=== PATIENT | female | born 1995 | race Caucasian/White ===

== ENCOUNTER 2017-07-05 16:05 | Emergency (ER) | payer MEDICAID, SELFPAY ==
[2017-07-05 16:07] VITALS: BP 98/38; PULSE 111; RESP 18; TEMP 36.6; O2SAT 96; BMI 39.5
--- NOTE | 2017-07-05 16:33 | CT_ITS ---
STUDY: CT ABDOMEN AND PELVIS WITH CONTRAST REASON FOR EXAM: Female, 21 years old. Right lower quadrant abdominal pain RADIATION DOSAGE (If Supplied By Facility): CTDIvol = ( 16.43 ) mGy, DLP = ( 1193.99 ) mGycm TECHNIQUE: Transaxial images were obtained from the dome of the diaphragm to the symphysis pubis with oral contrast. 100ML ml of Isovue 300 contrast was administered. Sagittal and coronal images were reconstructed. Individualized dose optimization techniques were used for this CT. COMPARISON: None. FINDINGS: The visualized lung bases are unremarkable. The visualized portions of the heart are within normal limits. Normal liver. Normal gallbladder and extrahepatic biliary system. Normal spleen. Normal pancreas. Normal bilateral adrenal glands. Normal right kidney. Normal left kidney. Normal visualized stomach. Normal small intestine. Normal colon. The appendix is visualized and appears normal. Normal abdominal aorta. Normal inferior vena cava. Normal retroperitoneum. Normal urinary bladder. Possibly partially septate uterus. Bilateral ovarian cysts. Normal abdominal wall. Normal osseous structures. CT/Abdomen/Pelvis WITH Contrast IMPRESSION: Unremarkable appendix. No acute findings. Remainder as above. Electronically Signed: Benny Sumner DO at 20:10 EST Tel , Service support ,
--- NOTE | 2017-07-05 16:46 | ED.VISSUMM ---
- ER Visit Summary Date of Service: 07/05/17 Chief Complaint: Abdominal pain History of Present Illness: The patient is a 21 F presenting with right lower quadrant abdominal pain. She states it started on Sunday. She has pain persistently in the right lower quadrant. She has nausea with no vomiting. She has decreased appetite. She has had subjective fevers at home. She was seen by urgent care and sent into the ED to rule out appendicitis. Denies possibility of . Physical Examination: Vitals are stable. Patient is afebrile. Alert no acute distress. HEENT exam is unremarkable. Neck is supple. Lungs are clear and equal bilaterally. Heart is regular rate and rhythm. Abdomen is soft right lower quadrant tenderness, no guarding or rebound Extremities are unremarkable. Skin is warm and dry. No focal neurologic deficit. Remainder of exam is unremarkable. Emergency Department Course and Treatment: Patient was given Zofran, phenergan. CBC, chemistries unremarkable. Liver lipase are normal. HCG negative. CT abdomen pelvis shows unremarkable appendix, bilateral ovarian cyst, possibly partially septate uterus. Patient is resting comfortably in the emergency department. She is advised to follow-up with [facility] MANAGER. Advised return ED for worsening complaints. Disposition: Discharge home Impression: Abdominal pain This note was generated with [employer] dictation software. It may contain incorrect words, spelling, and punctuation that were not noted in review of the chart prior to signing ED Disposition - Plan for ED Patient: Chief Complaint: Abd Pain Referrals: Gopi Beasley DO [Primary Care Provider] -
[2017-07-05 16:48] LABS: Absolute Lymphocyte Count 1.96 X10^3/ul (0.83-4.51); Absolute Neutrophil Count 6.5 X10^3/uL (2.0-7.7); Basophil# 0.07 X10^3/uL; Basophil% 0.8 % (0-1); Eosinophil# 0.31 X10^3/uL; Eosinophils% 3.4 % (0-5); Hematocrit 41.9 % (37-47); Hemoglobin 13.6 g/dl (12.0-15.0); Lymphocyte # 1.96 X10^3/ul (4.0); Lymphocyte % 21.2 % (19-41); Mean Corp Hgb Conc 32.5 g/gl (32-36); Mean Corpuscular Hgb 26.8 pg (27.0-32.0); Mean Corpuscular Volume 82.5 fL (81-99); Mean Platelet Vol. 11.2 fl (6.2-12.0); Monocyte# 0.45 X10^3/uL; Monocyte% 4.9 % (0-10); Neutrophil # 6.45 X10^3/uL (2.7-7.7); Neutrophil % 69.6 % (47-70); Platelet Count 262 K/mm3 (150-450); RBC Distribution Width CV 13.9 % (11.6-14.6); RBC Distribution Width SD 41.8 fl (35.1-43.9); Red Blood Count 5.08 M/mm3 (4.2-5.4); White Blood Count 9.3 K/mm3 (4.4-11.0)
[2017-07-05] MEDS: Ondansetron 4 MG/2 ML Vial IV (16:48)
[2017-07-05 16:49] LABS: POSITIVE COUNT NO; POSITIVE DIFFERENTIAL NO; POSITIVE MORPHOLOGY NO
[2017-07-05 17:01] LABS: AST(SGOT) 14 U/L (15-37); Alanine Aminotransfer ALT/SGPT 30 U/L (13-56); Alkaline Phosphatase 64 U/L (45-117); Anion Gap 11 (5-15); BUN 7 mg/dL (7-18); BUN/Creat Ratio 9.2 RATIO (10-20); Calcium,Total 9.3 mg/dL (8.5-10.1); Chloride 105 mmol/L (98-107); Creatinine, Serum 0.76 mg/dL (0.55-1.02); EST Glomerular Filtration Rate 102 mL/min (>60); Est Glom Filt Rate - Afr Amer 123 mL/min (>60); Estimated Creatinine Clearance 101.11 ml/min; Globulin 4.2 g/dL (2.2-4.2); Glucose 93 mg/dL (74-106); Lipase 105 U/L (73-393); Potassium 3.7 mmol/L (3.5-5.1); Protein, Total 8.2 g/dL (6.4-8.2); Sodium Level 140 mmol/L (136-145)
[2017-07-05 17:33] LABS: Pregnancy, Serum, hCG Quali. NEGATIVE Negative (0-9 Nonpreg)
[2017-07-05 19:43] VITALS: BP 125/75; PULSE 73; RESP 16; O2SAT 98
--- NOTE | 2017-07-05 20:31 | ED.DEP ---
ED Disposition - Plan for ED Patient: Chief Complaint: Abd Pain Instructions: ED Abdominal Pain Unkn Cause Prescriptions: Naproxen [Naprosyn] 500 mg PO BID PRN #20 tablet Referrals: Gopi Beasley DO [Primary Care Provider] -
[2017-07-05 20:53] VITALS: BP 137/65; PULSE 78; RESP 15; O2SAT 97
--- NOTE | 2017-07-05 20:54 | ED.RN ---
this rn reviewed pt discharge instructions and home going prescriptions with pt and mother. both verbalize understanding of instructions. pt iv d/c and covered with 2x2 gauze dressing, minimal bleeding noted. pt dresses self and is ambulatory home with mother, no assistance from staff needed.
== END 2017-07-05 20:56 | disposition home or self-care (01) ==
LOC: ED 18:46
PROVIDERS: Emergency Provider Emergency Medicine; Family Provider Student in an Organized Health Care Education/Training Program; PCP Student in an Organized Health Care Education/Training Program
DX: R10.31 Right lower quadrant pain (principal); N83.202 Unspecified ovarian cyst, left side; N83.201 Unspecified ovarian cyst, right side; R11.0 Nausea; J45.909 Unspecified asthma, uncomplicated
CPT/HCPCS: 74177; 80053; 83690; 84703; 85025; 96361; 96374; 96375; 99283; J7040; Q9967; A4216; J2405

== ENCOUNTER → 2017-07-16 14:54 | Outpatient (CLI) | payer MEDICAID, SELFPAY ==
--- NOTE | 2017-07-16 14:55 | US_ITS ---
STUDY: ULTRASOUND OF THE FEMALE PELVIS - COMPLETE REASON FOR EXAM: Female, 21 years old. Pelvic and perineal pain. LMP: 07/05/2017. TECHNIQUE: Transabdominal TECHNICAL QUALITY: Limited. The examination is somewhat limited without endovaginal study. COMPARISON: None. FINDINGS: The uterus is anteverted and is in a midline position. The uterus measures 7.6 x 5.1 x 3.6 cm. Normal uterine cervix. The endometrium measures 7 mm in thickness, and is heterogeneous (striated). There is no demonstrated endometrial mass. There is no demonstrated myometrial mass. I.U.D. - The patient does not have an I.U.D. The right ovary is visualized. The right ovary measures 4.2 x 3.5 x 2.5 cm. There is a 2.8 cm complex nodule in the right ovary which could represent small hemorrhagic cyst. Solid lesion is difficult to exclude. There is no visualized right adnexal mass or complex lesion. There is normal arterial and normal venous vascularity. The left ovary is visualized. The left ovary measures 4 x 2.7 x 2.1 cm. There is no left ovarian cyst or ovarian mass. There is no visualized left adnexal mass or complex lesion. There is normal arterial and normal venous vascularity. There is no fluid in the cul-de-sac. The pre void volume of the bladder was 352 ml. Polycystic ovary disease: No. US/Pelvic (Non ) IMPRESSION: Small complex lesion in the right ovary which could represent hemorrhagic cyst. Solid lesion cannot be excluded. Follow-up examination in 2-3 months is recommended. Electronically Signed: Kings Joaquin MD at 0:48 EST Tel , Service support ,
== END ==
PROVIDERS: Family Provider Student in an Organized Health Care Education/Training Program; PCP Student in an Organized Health Care Education/Training Program; Visit Provider Nurse Practitioner Women's Health
DX: R10.2 Pelvic and perineal pain (principal)
CPT/HCPCS: 76856; 93976

== ENCOUNTER → 2017-08-28 16:04 | Outpatient (CLI) | payer MEDICAID, SELFPAY ==
--- NOTE | 2017-08-28 10:30 | SEP_PTH ---
PATIENT: ROXY OTERO LOC: [facility] U#:[id number] AGE/SX: 29/F ROOM: RE08/28/[address]: Dr. Panchito Clement MD : 1995 BED: DIS: SPEC #: [id number] RECD: 08/29/17 11:00 STATUS: JULIUS GREG #: [id number] CRYSTAL: 08/28/17 10:[address]: Panchito Clement DEPT: SURGICAL PATHOLOGY RECD BY: Isael Simmons ENTERED: 08/29/17 11:01 SP TYPE: SEPTUM OTHR DR: Dr. Gopi Beasley, [facility] Tissues: Nasal septum, NOS Procedures: Decalcification bone/plaque Surgery Specimen Level III HEADER OPERATION: Septoplasty and partial resection of inferior turbinates PRE-OP DIAGNOSIS: Hypertrophy of nasal turbinates, deviated nasal septum TISSUE SUBMITTED: Septal cartilage MICROSCOPIC DIAGNOSIS Nasoseptal cartilage, septoplasty: Fragments of hyaline cartilage and bone with focal reactive change (clinically deviated septum). AM:caitlyn 09/03/17 MICROSCOPIC DESCRIPTION Slides are reviewed. GROSS DESCRIPTION Received is one container labeled with the patient's name and not further designated. The specimen consists of multiple fragments of cartilage and bone that in aggregate measure 2 x 1.5 x 0.3 cm. The entire specimen is submitted in one cassette after decalcification. / SJ:caitlyn 08/29/17 TC:5 CPT: 27158, 92269
== END ==
PROVIDERS: Family Provider Student in an Organized Health Care Education/Training Program; PCP Student in an Organized Health Care Education/Training Program; Visit Provider Otolaryngology Otolaryngology/Facial Plastic Surgery
DX: J34.3 Hypertrophy of nasal turbinates (principal); J34.2 Deviated nasal septum
CPT/HCPCS: 88304; 88311

== ENCOUNTER 2021-11-09 20:29 | Emergency (ER) | payer OTHER, SELFPAY ==
[2021-11-09 20:30] VITALS: BP 135/97; PULSE 76; RESP 16; TEMP 36.4; O2SAT 98; BMI 31.6
[2021-11-09 21:06] VITALS: BP 138/98; PULSE 57; RESP 14; O2SAT 98
[2021-11-09 21:16] LABS: Absolute Lymphocyte Count 1.56 X10^3/uL (0.83-4.51); Absolute Neutrophil Count 4.4 X10^3/uL (2.0-7.7); Basophil# 0.06 X10^3/uL; Basophil% 0.9 % (0-1); Eosinophil# 0.38 X10^3/uL; Eosinophils% 5.5 % (0-5); Hematocrit 36.6 % (37-47); Hemoglobin 12.2 g/dL (12.0-15.0); Lymphocyte # 1.56 X10^3/ul (0.83-4.51); Lymphocyte % 22.8 % (19-41); Mean Corp Hgb Conc 33.3 g/dL (32-36); Mean Corpuscular Hgb 28.8 pg (27.0-32.0); Mean Corpuscular Volume 86.5 fL (81-99); Mean Platelet Vol. 11.3 fl (6.2-12.0); Monocyte# 0.49 X10^3/uL; Monocyte% 7.2 % (0-10); NRBC Flagged by Analyzer 0 % (0-5); Neutrophil # 4.35 X10^3/uL (2.7-7.7); Neutrophil % 63.5 % (47-70); Platelet Count 197 K/mm3 (150-450); RBC Distribution Width CV 12.5 % (11.6-14.6); RBC Distribution Width SD 39.3 fl (35.1-43.9); Red Blood Count 4.23 M/mm3 (4.2-5.4); White Blood Count 6.9 K/mm3 (4.4-11.0)
[2021-11-09 21:27] LABS: Internal QC Validated? YES +Cl - CLEAR BKGD; Pregnancy, Serum, hCG Quali. NEGATIVE Negative
[2021-11-09 21:30] LABS: Anion Gap 6 (5-15); BUN 7 mg/dL (7-18); BUN/Creat Ratio 11.4 RATIO (10-20); Calcium,Total 8.8 mg/dL (8.5-10.1); Chloride 112 mmol/L (98-107); Creatinine, Serum 0.62 mg/dL (0.55-1.02); EST Glomerular Filtration Rate 124 mL/min (>60); Est Glom Filt Rate - Afr Amer 151 mL/min (>60); Estimated Creatinine Clearance 118.74 ml/min; Glucose 90 mg/dL (74-106); Potassium 3.5 mmol/L (3.5-5.1); Sodium Level 142 mmol/L (136-145)
--- NOTE | 2021-11-09 21:36 | CT_ITS ---
INDICATION: abdominal pain EXAMINATION: CT ABDOMEN AND PELVIS WITH CONTRAST - CT Abdomen And Pelvis W/ Contrast Injection TECHNIQUE: Helically acquired images were obtained of the abdomen and pelvis following IV contrast. A radiation dose optimization technique was used for this scan. IV Contrast dosage and agent: 100 mL of ISOVUE-300 Oral contrast: None. COMPARISON: CT abdomen and pelvis 07/05/2017. FINDINGS: LOWER CHEST: Lung bases are clear. No cardiomegaly or pericardial effusion. LIVER: Homogeneous. No focal mass. GALLBLADDER AND BILIARY TREE: No calcified gallstones. No gallbladder distension or wall edema. No intra- or extrahepatic biliary ductal dilation. PANCREAS: No focal cystic or solid mass. SPLEEN: Normal size without focal cystic or solid mass. ADRENAL GLANDS: No nodules. KIDNEYS, URETERS and BLADDER: Normal renal size and position. No mass. No hydronephrosis. Bladder is unremarkable. PERITONEUM: No ascites or free air. No other fluid collection. BOWEL: No evidence of acute appendicitis. No abnormally distended bowel loops or air fluid levels. No wall thickening or mass. No focal inflammatory changes. LYMPH NODES: No enlarged mesenteric or retroperitoneal lymph nodes. VESSELS: Aorta is non-dilated. REPRODUCTIVE ORGANS: Within normal limits ABDOMINAL WALL: No discrete abdominal or pelvic wall hernia. 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 Small os acetabulum on the left and benign bone island left femoral head. CT/Abdomen/Pelvis W IV Cont ONLY IMPRESSION: Negative CT of the abdomen and pelvis with contrast. Electronically Signed: Wisam Dudley DO at 22:32 EDT ,
--- NOTE | 2021-11-09 21:37 | ED.VIS.GI ---
HPI HPI - GI History of Present Illness Chief Complaint: Abd Pain Informant: patient Narrative Narrative: D6-year-old female presenting to the emergency department with abdominal pain. She states that she relates that she was having epigastric right upper quadrant abdominal pain on Sunday associated with nausea and small amount of diarrhea. She denies any fevers. She states that it feels like it is worsening. She states it hurts worse when she walks and when she pushes on her abdomen. She has had no prior abdominal surgeries. She has not vomited. No rashes. No blood in the stool. PFSH PFSH Medical History Anxiety Depression Laceration of right index finger Home Medications ondansetron 4 mg disintegrating tablet 4 mg PO Q6H PRN PRN Nausea #15 tabs 11/09/21 [Rx Last Taken Unknown] oxycodone-acetaminophen 5 mg-325 mg tablet 1 tab PO Q6H PRN PRN Pain 3 days #12 TABLETS 11/09/21 [Rx Last Taken Unknown] Allergy/AdvReac Type Severity Reaction Status Date / Time amoxicillin [Amoxicillin] Allergy Rash Verified 11/09/21 20:31 hydrocodone bitartrate AdvReac Nausea/Vom/ Verified 11/09/21 20:31 [From Vicodin] Diarrhea Family History Mother Lupus Diabetes Grandfather Diabetes Heart disease Surgical History H/O wisdom tooth extraction History of placement of ear tubes History of tonsillectomy Social History Smoking Status: Never smoker alcohol intake: current details: social substance use type: does not use caffeine: Yes frequency: 1-2 times per week seatbelt use: always do you feel safe at home: Yes additional social history: Single- Unemployed ROS ROS ED Constitutional Constitutional ED: Denies chills or weight loss Eyes Eyes: Denies change in vision or diplopia ENT ENT ED: Denies ear pain, rhinorrhea or sore throat Cardiovascular Cardiovascular: Denies chest pain, orthopnea, palpitations or racing heartbeat Respiratory/Chest Respiratory/Chest: Denies cough, dyspnea or orthopnea Gastrointestinal Gastrointestinal: Reports abdominal pain, diarrhea and nausea; Denies constipation or vomiting Genitourinary Genitourinary ED: Denies dysuria, hematuria or urinary frequency Musculoskeletal Musculoskeletal: Denies arthralgias or myalgias Integumentary Denies abscess or rash Neurologic Neurologic: Denies headache(s) or weakness Psychiatric Psychiatric: Denies anxiety, depression, suicidal ideation or suicidal thoughts Endocrine Endocrinology: Denies polydipsia, polyphagia or polyuria Allergic/Immunologic Allergic/Immunologic ED: Denies mouth swelling, tongue swelling or urticaria EXAM Physical Exam Const Vital Signs: 11/09/21 20:30 11/09/21 21:06 Temperature 97.6 F L Temperature Source Temporal Pulse Rate 76 57 L Respiratory Rate 16 14 Blood Pressure 135/97 H 138/98 H Blood Pressure Mean 109 111 Pulse Ox 98 98 Oxygen Delivery Method Room Air Room Air Positive well nourished and well developed General Appearance ED: well developed HEENT Reports normocephalic, head/scalp atraumatic and moist mucous membranes Eyes PERRL and EOMs intact bilaterally Neck no lymphadenopathy, supple and no JVD Resp normal respiratory effort and clear to auscultation bilaterally Cardio regular rate, regular rhythm and no murmurs GI GI Narrative: Tender to palpation without guarding or rebound of the right upper quadrant and epigastrium. Auscultation: normoactive bowel sounds Palpation: soft Back/Spine no CVA tenderness and normal ROM Extremity normal to inspection General Extremety ED: Negative for edema General Extremity: Negative for edema Neuro oriented x3 and CN's II-XII intact bilaterally Sensorium / Orientation: alert Motor Exam: strength 5/5 throughout Psych mental status grossly normal Mood & Affect: Negative for depressed or tearful Skin no rashes or lesions noted and no wounds MDM MDM MDM Narrative Medical decision making narrative: White count 6.9. CMP is within normal limits. test is negative. Lipase is 92. CT of the abdomen pelvis with IV contrast is negative for acute. Patient continues to report pain in the epigastrium with palpation. At this point however I do not see an obvious emergent cause for the patient's symptoms. Can write for some pain and nausea medication. Return in 24 to 48 hours if new or persistent symptoms. Lab Data Attestation: I reviewed the patient's lab results. Labs: Laboratory Results - last 24 hr 06/22/22 06/22/22 06/22/22 21:11 21:11 21:11 WBC 6.9 RBC 4.23 Hgb 12.2 Hct 36.6 L MCV 86.5 MCH 28.8 MCHC 33.3 RDW Std Deviation 39.3 RDW Coeff of Kiya 12.5 Plt Count 197 MPV 11.3 Immature Gran % (Auto) 0.100 Neut % (Auto) 63.5 Lymph % (Auto) 22.8 [place] % (Auto) 7.2 Eos % (Auto) 5.5 H Baso % (Auto) 0.9 Absolute Neuts (auto) 4.4 Absolute Lymphs (auto) 1.56 Nucleated RBC % 0 Sodium 142 Potassium 3.5 Chloride 112 H Carbon Dioxide 24.0 Anion Gap 6 BUN 7 Creatinine 0.62 Estim Creat Clear Calc 118.74 Est GFR (MDRD) Af Amer 151 Est GFR (MDRD) Non-Af 124 BUN/Creatinine Ratio 11.4 Glucose 90 Calcium 8.8 Total Bilirubin Direct Bilirubin AST ALT Alkaline Phosphatase Total Protein Albumin Globulin Lipase Serum , Qual NEGATIVE 11/09/21 11/09/21 21:11 21:11 WBC RBC Hgb Hct MCV MCH MCHC RDW Std Deviation RDW Coeff of Kiya Plt Count MPV Immature Gran % (Auto) Neut % (Auto) Lymph % (Auto) [place] % (Auto) Eos % (Auto) Baso % (Auto) Absolute Neuts (auto) Absolute Lymphs (auto) Nucleated RBC % Sodium Potassium Chloride Carbon Dioxide Anion Gap BUN Creatinine Estim Creat Clear Calc Est GFR (MDRD) Af Amer Est GFR (MDRD) Non-Af BUN/Creatinine Ratio Glucose Calcium Total Bilirubin 0.40 Direct Bilirubin 0.19 AST 10 L ALT 19 Alkaline Phosphatase 43 L Total Protein 6.7 Albumin 3.6 Globulin 3.1 Lipase 92 Serum , Qual Radiography Diagnostic Testing: Clinical Impression(s) from Imaging Studies Abdomen/Pelvis CT 11/09/21 21:36 IMPRESSION: Negative CT of the abdomen and pelvis with contrast. Electronically Signed: Wisam Dudley DO at 22:32 EDT , Discharge Plan Triage Chief Complaint: Abd Pain ED Provider: Manny Martinez Dx/Rx/DC Orders Clinical Impression: Abdominal pain Instructions: ED Abdominal Pain Unkn Cause Fem Prescriptions: New oxycodone-acetaminophen [oxycodone-acetaminophen] 5-325 mg tablet 1 tab PO Q6H PRN PRN (Reason: Pain) 3 Days Qty: 12 0RF ondansetron [ondansetron] 4 mg tablet,disintegrating 4 mg PO Q6H PRN PRN (Reason: Nausea) Qty: 15 0RF Primary Care Provider: Care Physician,No Primary Referrals: Care Physician,No Primary [Primary Care Provider] - Activity Restrictions/Additional Instructions: If continued symptoms or worsening symptoms in 24-48 hrs. please return for repeat examination Disposition Disposition: Home, Self Care
[2021-11-09] MEDS: Ondansetron 4 MG/2 ML Vial IV (21:43)
[2021-11-09 21:59] LABS: AST(SGOT) 10 U/L (15-37); Alanine Aminotransfer ALT/SGPT 19 U/L (13-56); Albumin, Serum 3.6 g/dL (3.2-5.0); Alkaline Phosphatase 43 U/L (45-117); Bilirubin, Direct 0.19 mg/dL (0.00-0.30); Globulin 3.1 g/dL (2.2-4.2); Protein, Total 6.7 g/dL (6.4-8.2)
[2021-11-09 22:12] LABS: Lipase 92 U/L (73-393)
[2021-11-09 22:50] LABS: Bacteria 0 SEEN /hpf (None Seen); Mucous, Urine 0 SEEN /hpf (<or=2+); Red Blood Cells-Urine 0 SEEN /hpf (0-5)
[2021-11-09 23:08] LABS: Color, Urine Yellow (Yellow); Glucose, Dipstick Normal (Normal); Ketone-Dipstick Negative (Negative); Leukocyte Esterase-Dipstick 25 /ul (Negative); Nitrite-Dipstick Positive (Negative); Occult Blood-Urine Negative /ul (Negative); Protein-Dipstick Negative (Negative); Urine Clarity Clear (Clear); Urine Urobilinogen 4 mg/dl (Normal); Urine pH 6.5 (5.0 - 8.0)
[2021-11-09 23:18] LABS: Urine Bilirubin Dipstick 1 mg/dL (Negative)
[2021-11-09 23:33] LABS: Squamous Epithelial Cells - UA 0-5 SEEN /hpf (5-10); White Blood Cells 0-5 SEEN /hpf (0-5)
== END 2021-11-09 23:20 | disposition home or self-care (01) ==
PROVIDERS: Emergency Provider Emergency Medicine; Visit Provider Emergency Medicine
DX: R10.11 Right upper quadrant pain (principal); R10.13 Epigastric pain; R19.7 Diarrhea, unspecified
CPT/HCPCS: 74177; 80048; 80076; 81001; 83690; 84703; 85025; 96374; 99283; Q9967; A4216; J2405

== ENCOUNTER 2025-02-01 17:03 | Emergency (ER) | payer SELFPAY ==
[2025-02-01 17:03] VITALS: BP 123/69; PULSE 73; RESP 18; TEMP 36.8; O2SAT 98; BMI 32.1
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
[2025-02-01 17:39] VITALS: BP 141/98; PULSE 79; RESP 18; TEMP 37; O2SAT 100
--- OUTSIDE RECORDS SUMMARY | 2025-02-01 18:21 | XMS RPT_ITS | CCD ---
Author Organization [facility] Care Team Providers Care Butt Maker Name Role Phone Unavailable Primary Care Provider Unavailabl e Allergies Allergy Classification Reported Allergen(s) Allergy Type Date of Onset Reaction(s) Facility (2 sources) Amoxicillin Drug Allergy 3 GI Upset [facility] (1 source) HYDROcodone Drug Allergy 2 Nausea/Vom/Diar [facility] Work Phone: (1 source) Acetaminophen / HYDROcodone Drug Allergy 4 Vomiting [facility] (1 source) Cinnamon Preparation Drug Allergy 3 Rash [facility] (1 source) Penicillins Drug Allergy 3 GI Upset [facility] Medications Current Medications Medication Drug Class(es) Dates Sig (Normalized) Sig (Original) acetaminophen 325 mg / oxyCODONE hydrochloride 5 mg oral tablet (1 source) Opioid Agonist Start: 11-09-2021 take 1 tablet by mouth every six hours as needed Oxycodone-Acetami nophen Active 1 TABLET PO EVERY 6 HOURS NEEDED 12 3 November 09, 2021 ondansetron 4 mg disintegrating oral tablet (1 source) Serotonin-3 Receptor Antagonist Start: 11-09-2021 take 4 mg by mouth every six hours as needed Ondansetron Active 4 MG PO EVERY 6 HOURS NEEDED 15 November 09, 2021 11:05pm Problems Active Problems Problem Classification Problem Date Documented Da te Episodic/Chronic Abdominal pain (1 source) Abdominal pain; Translations: [Unspecified abdominal pain] Episodic Asthma (1 source) Asthma; Translations: [Unspecified asthma, uncomplicated] Onset: 08-15-2013 08-15-2013 Chronic Nutritional deficiencies (1 source) Vitamin D deficiency; Translations: [Vitamin D deficiency, unspecified] Onset: 09-16-2013 09-16-2013 Chronic Open wounds of extremities (1 source) Laceration of right index finger; Translations: [Laceration without foreign body of right index finger without damage to nail, initial encounter] Episodic Other nutritional; endocrine; and metabolic disorders (1 source) Body mass index 30+ - obesity; Translations: [Obesity, unspecified] Onset: 09-09-2013 09-09-2013 Chronic Past or Other Problems Problem Classification Problem Date Documented Da te Episodic/Chronic Headache; including migraine (1 source) Headache; Translations: [Worsening headaches] Onset: 09-09-2013 09-09-2013 Episodic Malaise and fatigue (1 source) Fatigue; Translations: [Other fatigue] Onset: 09-09-2013 09-09-2013 Episodic Other non-traumatic joint disorders (1 source) Pain in left shoulder; Translations: [Pain in joint, shoulder region] Onset: 09-09-2013 09-09-2013 Episodic Results Test Name Value Interpretation Reference Range Facility [facility] EZ FAULKNER ([id number]) 1995 F Date Time Provider Department 11/15/23 SHY AGUILAR During your visit today, we recorded the following information about you: Kandis Marshall RN 11/15/2023 3:00 PM Signed LMP 10/11 Approximately 4w6d Patient calling with c/o light pink spotting on Sunday night and again just a few moments ago. Only when she wiped. Mild to no pain. Reassurance provided. Patient had intercourse on Sunday. Advised to call with further or increased bleeding or worsening pain. Patient has upcoming NOB. No need to call patient unless provider has further recommendations. DORI Martinez Courtney, APRN.CNM 11/15/2023 3:18 PM Signed Agree with plan of care. Shy Aguilar APRN.CNM Allergies As of Date: 11/15/2023 Noted Allergy Reaction AMOXICILLIN 04/29/2013 8 - GI Upset CINNAMON 04/29/2013 2 - Rash PENICILLINS 04/29/2013 8 - GI Upset Comments: AND vomiting VICODIN (HYDROCODONE-ACETAMIN OPHE*08/11/2013 11 - Vomiting Date Reviewed: 07/05/2017 Reviewed by: Annie Byrd ([employer] Consultant), TRIPLE VALVE TESTER.BOTANY TEACHER - Fully Assessed Reason for Visit: Early OB Spotting [Other] Problem List As Of Date 11/15/2023 Noted Resolved Asthma [J45.909] 08/15/2013 Worsening headaches [R51.9] 09/09/2013 Fatigue [R53.83] 09/09/2013 Left shoulder pain [M25.512] 09/09/2013 Obesity (BMI 30-39.9) [E66.9] 09/09/2013 Vitamin D deficiency [E55.9] 09/16/2013 Encounter Status:Closed by SHY AGUILAR on 11/15/23 Normal [facility] Lipaseon 11-10-2021 Lipase [Catalytic activity/Vol] 92 U/L Normal 73-393 [facility] Comment on above: Performed By: #### L 501.2450 #### [facility] [address] [place], [place], [id number] Urinalysis, Completeon 11-10 EPI,SQUAMOUS 0-5 SEEN Normal 5-10 [facility] Comment on above: Order Comment: CLEAN CATCH Performed By: #### L 400.0001 #### [facility] [address] [place], [address] WBC 0-5 SEEN Normal 0-5 [facility] Comment on above: Order Comment: CLEAN CATCH Performed By: #### L 400.0001 #### [facility] [address] [place], [address] BACTERIA 0 SEEN Normal None Seen [facility] Comment on above: Order Comment: CLEAN CATCH Performed By: #### L 400.0001 #### [facility] [address] [place], [address] Mucus Ql (Urine sed) 0 SEEN Normal [facility] Comment on above: Order Comment: CLEAN CATCH Performed By: #### L 400.0001 #### [facility] [address] [place], [address] RBC 0 SEEN Normal 0-5 [facility] Comment on above: Order Comment: CLEAN CATCH Performed By: #### L 400.0001 #### [facility] [address] [place], [address] Abdomen/Pelvis W IV Cont ONL Yon 11-09-2021 Abdomen/Pelvis W IV Cont ONLY [facility] [address] [facility] [place] [address] Abdomen/Pelvis W IV Cont ONLY MR#: [id number] Acct: [id number] Name: EZ FAULKNER Rep #: [id number] : 1995 F 26 From: Wisam Dudley DO PCP: Care Physician,No Primary Status: REG ER Study: Abdomen/Pelvis W IV Cont ONLY Date of Exam: Exam# [id number] Ordering Dr: Manny Martinez DO INDICATION: abdominal pain EXAMINATION: CT ABDOMEN AND PELVIS WITH CONTRAST - CT Abdomen And Pelvis W/ Contrast Injection TECHNIQUE: Helically acquired images were obtained of the abdomen and pelvis following IV contrast. A radiation dose optimization technique was used for this scan. IV Contrast dosage and agent: 100 mL of ISOVUE-300 Oral contrast: None. COMPARISON: CT abdomen and pelvis 07/05/2017. __ FINDINGS: LOWER CHEST: Lung bases are clear. No cardiomegaly or pericardial effusion. LIVER: Homogeneous. No focal mass. GALLBLADDER AND BILIARY TREE: No calcified gallstones. No gallbladder distension or wall edema. No intra- or extrahepatic biliary ductal dilation. PANCREAS: No focal cystic or solid mass. SPLEEN: Normal size without focal cystic or solid mass. ADRENAL GLANDS: No nodules. KIDNEYS, URETERS and BLADDER: Normal renal size and position. No mass. No hydronephrosis. Bladder is unremarkable. PERITONEUM: No ascites or free air. No other fluid collection. BOWEL: No evidence of acute appendicitis. No abnormally distended bowel loops or air fluid levels. No wall thickening or mass. No focal inflammatory changes. LYMPH NODES: No enlarged mesenteric or retroperitoneal lymph nodes. VESSELS: Aorta is non-dilated. REPRODUCTIVE ORGANS: Within normal limits ABDOMINAL WALL: No discrete abdominal or pelvic wall hernia. 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 Small os acetabulum on the left and benign bone island left femoral head. CT/Abdomen/Pelvis W IV Cont ONLY IMPRESSION: Negative CT of the abdomen and pelvis with contrast. Electronically Signed: Wisam Dudley DO at 22:32 EDT , CC: Dr. Manny Martinez DO; No Primary Care Physician Injection Molding Machine Offbearer: Signed Normal [facility] Absolute lymphocyte counton 11-09-2021 Lymphocytes Auto (Unsp spec) [#/Vol] 1.56 10*3/uL 0.83-4.51 [facility] Work Phone: Basic Metabolic Profile (BMP )on 11-09-2021 BUN/CRE 11.4 RATIO Normal 10-20 [facility] Comment on above: Performed By: #### L 700.6800, L100.0100, L500.2500 #### [facility] [address] [place], [address] CA,Total 8.8 mg/dL Normal 8.5-10.1 [facility] Comment on above: Performed By: #### L 700.6800, L100.0100, L500.2500 #### [facility] [address] [place], [address] Chloride [Moles/Vol] 112 mmol/L High 98-107 [facility] Comment on above: Performed By: #### L 700.6800, L100.0100, L500.2500 #### [facility] [address] [place], [address] CO2 [Moles/Vol] 24.0 mmol/L Normal 21.0-32.0 [facility] Comment on above: Performed By: #### L 700.6800, L100.0100, L500.2500 #### [facility] [address] [place], [address] Creatinine [Mass/Vol] 0.62 mg/dL Normal 0.55-1.02 [facility] Comment on above: Result Comment: The validity of the calculated GFR GFRAA in patients over 70 years has not been determined. Clinical correlation is essential. Performed By: #### L 700.6800, L100.0100, L500.2500 #### [facility] [address] [place], [address] ECRCL 118.74 ml/min Normal [facility] Comment on above: Performed By: #### L 700.6800, L100.0100, L500.2500 #### [facility] [address] [place], [address] EST GFR - AA 151 mL/min Normal >60 [facility] Comment on above: Result Comment: Afri can [place] GFR Calc Performed By: #### L 700.6800, L100.0100, L500.2500 #### [facility] [address] [place], [address] GAP 6 Normal 5-15 [facility] Comment on above: Performed By: #### L 700.6800, L100.0100, L500.2500 #### [facility] [address] [place], [address] GFR/1.73 sq M.predicted among non-blacks MDRD (S/P/Bld) [Vol rate/Area] 124 mL/min/{1.73_m2} Normal >60 [facility] Comment on above: Result Comment: Non- GFR Calc Performed By: #### L 700.6800, L100.0100, L500.2500 #### [facility] [address] [place], [address] Glucose [Mass/Vol] 90 mg/dL Normal 74-106 [facility] Comment on above: Performed By: #### L 700.6800, L100.0100, L500.2500 #### [facility] [address] [place], [address] Potassium [Moles/Vol] 3.5 mmol/L Normal 3.5-5.1 [facility] Comment on above: Performed By: #### L 700.6800, L100.0100, L500.2500 #### [facility] [address] [place], [address] Sodium [Moles/Vol] 142 mmol/L Normal 136-145 [facility] Comment on above: Performed By: #### L 700.6800, L100.0100, L500.2500 #### [facility] [address] [place], [address] Urea nitrogen [Mass/Vol] 7 mg/dL Normal 7-18 [facility] Comment on above: Performed By: #### L 700.6800, L100.0100, L500.2500 #### [facility] [address] [place], [address] Basophil percentageon 2021 Basophils/100 WBC (Bld) 0.9 % 0-1 [facility] Work Phone: Bilirubin [Mass/Vol] 0.40 mg/dL 0.20-1.00 [facility] Work Phone: Comment on above: For patients on eltr ombopag therapy, use of Dimension [place] TBIL is not recommended. Chloride [Moles/Vol] 112 mmol/L 98-107 [facility] Work Phone: Eosinophils/100 WBC (Bld) 5.5 % 0-5 [facility] Work Phone: Glucose [Mass/Vol] 90 mg/dL 74-106 [facility] Work Phone: Neutrophils (Bld) [#/Vol] 4.4 10*3/uL 2.0-7.7 [facility] Work Phone: Neutrophils/100 WBC (Bld) 63.5 % 47-70 [facility] Work Phone: Potassium [Moles/Vol] 3.5 mmol/L 3.5-5.1 [facility] Work Phone: Protein [Mass/Vol] 6.7 g/dL 6.4-8.2 [facility] Work Phone: Sodium [Moles/Vol] 142 mmol/L 136-145 [facility] Work Phone: WBC (Bld) [#/Vol] 6.9 10*3/uL 4.4-11.0 [facility] Work Phone: Beta hCG serum qualon 2021 Beta HCG ( test) Ql Negative [facility] Work Phone: Bilirubin Test strip Ql (U)o n 11-09-2021 Bilirubin Ql (U) 1 mg/dL Negative [facility] Work Phone: Comment on above: COLOR OF URINE MAY A FFECT DIPSTICK RESULTS. Blood erythrocytes count (nu mber/volume)on 11-09-2021 RBC (Bld) [#/Vol] 4.23 10*6/uL 4.2-5.4 [facility] Work Phone: Blood hemoglobin measurement (mass/volume)on 11-09-2021 Hemoglobin (Bld) [Mass/Vol] 12.2 g/dL 12.0-15.0 [facility] Work Phone: Blood lymphocytes/100 leukoc yteson 11-09-2021 Lymphocytes/100 WBC (Bld) 22.8 % 19-41 [facility] Work Phone: Blood monocytes/100 leukocyt eson 11-09-2021 Monocytes/100 WBC (Bld) 7.2 % 0-10 [facility] Work Phone: Blood platelet mean volumeon 11-09-2021 Platelet mean volume (Bld) [Entitic vol] 11.3 fL 6.2-12.0 [facility] Work Phone: CBC W/Diff, Automatedon 10-20 Absolute Lymph 1.56 X10 3/uL Normal 0.83-4.51 [facility] Comment on above: Performed By: #### L 700.6800, L100.0100, L500.2500 #### [facility] [address] [place], [address] Absolute Neut 4.4 X10 3/uL Normal 2.0-7.7 [facility] Comment on above: Performed By: #### L 700.6800, L100.0100, L500.2500 #### [facility] [address] [place], [address] Basophils/100 WBC (Bld) 0.9 % Normal 0-1 [facility] Comment on above: Performed By: #### L 700.6800, L100.0100, L500.2500 #### [facility] [address] [place], [address] Eosinophils/100 WBC (Bld) 5.5 % High 0-5 [facility] Comment on above: Performed By: #### L 700.6800, L100.0100, L500.2500 #### [facility] [address] [place], [address] Erythrocyte distribution width (RBC) [Ratio] 12.5 % Normal 11.6-14.6 [facility] Comment on above: Performed By: #### L 700.6800, L100.0100, L500.2500 #### [facility] [address] [place], [address] Hematocrit (Bld) [Volume fraction] 36.6 % Low 37-47 [facility] Comment on above: Performed By: #### L 700.6800, L100.0100, L500.2500 #### [facility] [address] [place], [address] Hemoglobin (Bld) [Mass/Vol] 12.2 g/dL Normal 12.0-15.0 [facility] Comment on above: Performed By: #### L 700.6800, L100.0100, L500.2500 #### [facility] [address] [place], [address] IG% 0.100 Normal 0.0-0.9 [facility] Comment on above: Result Comment: IG% - Immature Granulocytes (promyelocytes, myelocytes and metamyelocytes) > 1% indicates that a LEFT SHIFT is Present. Performed By: #### L 700.6800, L100.0100, L500.2500 #### [facility] [address] [place], [address] Lymphocytes/100 WBC (Bld) 22.8 % Normal 19-41 [facility] Comment on above: Performed By: #### L 700.6800, L100.0100, L500.2500 #### [facility] [address] [place], [address] MCH (RBC) [Entitic mass] 28.8 pg Normal 27.0-32.0 [facility] Comment on above: Performed By: #### L 700.6800, L100.0100, L500.2500 #### [facility] [address] [place], [address] MCHC (RBC) [Mass/Vol] 33.3 g/dL Normal 32-36 [facility] Comment on above: Performed By: #### L 700.6800, L100.0100, L500.2500 #### [facility] [address] [place], [address] MCV (RBC) [Entitic vol] 86.5 fL Normal 81-99 [facility] Comment on above: Performed By: #### L 700.6800, L100.0100, L500.2500 #### [facility] [address] [place], [address] Monocytes/100 WBC (Bld) 7.2 % Normal 0-10 [facility] Comment on above: Performed By: #### L 700.6800, L100.0100, L500.2500 #### [facility] [address] [place], [address] Neutrophils/100 WBC (Bld) 63.5 % Normal 47-70 [facility] Comment on above: Performed By: #### L 700.6800, L100.0100, L500.2500 #### [facility] [address] [place], [address] Nucleated RBC (Bld) [#/Vol] 0 10*3/uL Normal 0-5 [facility] Comment on above: Performed By: #### L 700.6800, L100.0100, L500.2500 #### [facility] [address] [place], [address] Platelet mean volume (Bld) [Entitic vol] 11.3 fL Normal 6.2-12.0 [facility] Comment on above: Performed By: #### L 700.6800, L100.0100, L500.2500 #### [facility] [address] [place], [address] Platelets (Bld) [#/Vol] 197 10*3/uL Normal 150-450 [facility] Comment on above: Performed By: #### L 700.6800, L100.0100, L500.2500 #### [facility] [address] [place], [address] RBC (Bld) [#/Vol] 4.23 10*6/uL Normal 4.2-5.4 [facility] Comment on above: Performed By: #### L 700.6800, L100.0100, L500.2500 #### [facility] [address] [place], [address] RDW SD 39.3 fl Normal 35.1-43.9 [facility] Comment on above: Performed By: #### L 700.6800, L100.0100, L500.2500 #### [facility] [address] [place], [address] WBC (Bld) [#/Vol] 6.9 10*3/uL Normal 4.4-11.0 [facility] Comment on above: Performed By: #### L 700.6800, L100.0100, L500.2500 #### [facility] [address] [place], [address] Determination of erythrocyte mean corpuscular volume (MCV)on 11-09-2021 MCV (RBC) [Entitic vol] 86.5 fL 81-99 [facility] Work Phone: Direct bilirubinon 2 Bilirubin.direct [Mass/Vol] 0.19 mg/dL 0.00-0.30 [facility] Work Phone: Emergency Department Summary on 11-09-2021 Emergency Department Summary [facility] Medical Records Department [address] [place] [address] Emergency Department Summary 11/09/21 MR#: [id number] Acct: [id number] Name: EZ FAULKNER Rep #: [id number] : 1995 26 From: Manny Martinez DO PCP: Care Physician,No Primary Status:DEP ER Location: ED HPI HPI - GI History of Present Illness Chief Complaint: Abd Pain Informant: patient Narrative Narrative: D6-year-old female presenting to the emergency department with abdominal pain. She states that she relates that she was having epigastric right upper quadrant abdominal pain on Sunday associated with nausea and small amount of diarrhea. She denies any fevers. She states that it feels like it is worsening. She states it hurts worse when she walks and when she pushes on her abdomen. She has had no prior abdominal surgeries. She has not vomited. No rashes. No blood in the stool. PFSH PFSH Medical History Anxiety Depression Laceration of right index finger Home Medications ondansetron 4 mg disintegrating tablet 4 mg PO Q6H PRN PRN Nausea #15 tabs 11/09/21 [Rx Last Taken Unknown] oxycodone-acetaminoph en 5 mg-325 mg tablet 1 tab PO Q6H PRN PRN Pain 3 days #12 TABLETS 11/09/21 [Rx Last Taken Unknown] Allergy/AdvReac Type Severity Reaction Status Date / Time amoxicillin [Amoxicillin] Allergy Rash Verified 11/09/21 20:31 hydrocodone bitartrate AdvReac Nausea/Vom/ Verified 11/09/21 20:31 [From Vicodin] Diarrhea Family History Mother Lupus Diabetes Grandfather Diabetes Heart disease Surgical History H/O wisdom tooth extraction History of placement of ear tubes History of tonsillectomy Social History Smoking Status: Never smoker alcohol intake: current details: social substance use type: does not use caffeine: Yes frequency: 1-2 times per week seatbelt use: always do you feel safe at home: Yes additional social history: Single- Unemployed ROS ROS ED Constitutional Constitutional ED: Denies chills or weight loss Eyes Eyes: Denies change in vision or diplopia ENT ENT ED: Denies ear pain, rhinorrhea or sore throat Cardiovascular Cardiovascular: Denies chest pain, orthopnea, palpitations or racing heartbeat Respiratory/Chest Respiratory/Chest: Denies cough, dyspnea or orthopnea Gastrointestinal Gastrointestinal: Reports abdominal pain, diarrhea and nausea; Denies constipation or vomiting Genitourinary Genitourinary ED: Denies dysuria, hematuria or urinary frequency Musculoskeletal Musculoskeletal: Denies arthralgias or myalgias Integumentary Denies abscess or rash Neurologic Neurologic: Denies headache(s) or weakness Psychiatric Psychiatric: Denies anxiety, depression, suicidal ideation or suicidal thoughts Endocrine Endocrinology: Denies polydipsia, polyphagia or polyuria Allergic/Immunologic Allergic/Immunologic ED: Denies mouth swelling, tongue swelling or urticaria EXAM Physical Exam Const Vital Signs: 11/09/21 20:30 11/09/21 21:06 Temperature 97.6 F L Temperature Source Temporal Pulse Rate 76 57 L Respiratory Rate 16 14 Blood Pressure 135/97 H 138/98 H Blood Pressure Mean 109 111 Pulse Ox 98 98 Oxygen Delivery Method Room Air Room Air Positive well nourished and well developed General Appearance ED: well developed HEENT Reports normocephalic, head/scalp atraumatic and moist mucous membranes Eyes PERRL and EOMs intact bilaterally Neck no lymphadenopathy, supple and no JVD Resp normal respiratory effort and clear to auscultation bilaterally Cardio regular rate, regular rhythm and no murmurs GI GI Narrative: Tender to palpation without guarding or rebound of the right upper quadrant and epigastrium. Auscultation: normoactive bowel sounds Palpation: soft Back/Spine no CVA tenderness and normal ROM Extremity normal to inspection General Extremety ED: Negative for edema General Extremity: Negative for edema Neuro oriented x3 and CN's II-XII intact bilaterally Sensorium / Orientation: alert Motor Exam: strength 5/5 throughout Psych mental status grossly normal Mood Affect: Negative for depressed or tearful Skin no rashes or lesions noted and no wounds MDM MDM MDM Narrative Medical decision making narrative: White count 6.9. CMP is within normal limits. test is negative. Lipase is 92. CT of the abdomen pelvis with IV contrast is negative for acute. Patient continues to report pain in the epigastrium with palpation. At this point however I do not see an obvious emergent cause for the patient's symptoms. Can write for some pain an (more content not included)... Normal [facility] Hematocrit Auto (Bld) [Volum e fraction]on 11-09-2021 Hematocrit (Bld) [Volume fraction] 36.6 % 37-47 [facility] Work Phone: Ketones Test strip Ql (U)on 11-09-2021 Ketones Ql (U) Negative Negative [facility] Work Phone: Laboratory - Chemistry and C hemistry - challengeon 11-09-2021 ALP [Catalytic activity/Vol] 43 U/L 45-117 [facility] Work Phone: ALT [Catalytic activity/Vol] 19 U/L 13-56 [facility] Work Phone: CO2 [Moles/Vol] 24.0 mmol/L 21.0-32.0 [facility] Work Phone: Globulin (S) [Mass/Vol] 3.1 g/dL 2.2-4.2 [facility] Work Phone: Lipase [Catalytic activity/Vol] 92 U/L 73-393 [facility] Work Phone: Urea nitrogen/Creatinine [Mass ratio] 11.4 mg/mg 10-20 [facility] Work Phone: Laboratory - Hematology and Cell countson 11-09-2021 Erythrocyte distribution width (RBC) [Entitic vol] 39.3 fL 35.1-43.9 [facility] Work Phone: Erythrocyte distribution width (RBC) [Ratio] 12.5 % 11.6-14.6 [facility] Work Phone: Immature granulocytes/100 WBC (Bld) 0.100 % 0.0-0.9 [facility] Work Phone: Comment on above: IG% - Immature Granu locytes (promyelocytes, myelocytes and metamyelocytes) > 1% indicates that a LEFT SHIFT is Present. MCH (RBC) [Entitic mass] 28.8 pg 27.0-32.0 [facility] Work Phone: Nucleated RBC/100 WBC (Bld) [Ratio] 0 % 0-5 [facility] Work Phone: Liver Profileon 11-09-2021 Albumin [Mass/Vol] 3.6 g/dL Normal 3.2-5.0 [facility] Comment on above: Performed By: #### L 500.3400 #### [facility] [address] [place], [address] ALK P 43 U/L Low 45-117 [facility] Comment on above: Performed By: #### L 500.3400 #### [facility] [address] [place], [address] ALT [Catalytic activity/Vol] 19 U/L Normal 13-56 [facility] Comment on above: Performed By: #### L 500.3400 #### [facility] [address] [place], [address] AST [Catalytic activity/Vol] 10 U/L Low 15-37 [facility] Comment on above: Performed By: #### L 500.3400 #### [facility] [address] [place], [address] Bilirubin [Mass/Vol] 0.40 mg/dL Normal 0.20-1.00 [facility] Comment on above: Result Comment: For patients on eltrombopag therapy, use of Dimension [place] TBIL is not recommended. Performed By: #### L 500.3400 #### [facility] [address] [place], [address] Bilirubin.direct [Mass/Vol] 0.19 mg/dL Normal 0.00-0.30 [facility] Comment on above: Performed By: #### L 500.3400 #### [facility] [address] [place], [address] Globulin (S) [Mass/Vol] 3.1 g/dL Normal 2.2-4.2 [facility] Comment on above: Performed By: #### L 500.3400 #### [facility] [address] [place], [address] T PROT 6.7 g/dL Normal 6.4-8.2 [facility] Comment on above: Performed By: #### L 500.3400 #### [facility] [address] [place], [address] MCHC Auto (RBC) [Mass/Vol]on 11-09-2021 MCHC (RBC) [Mass/Vol] 33.3 g/dL 32-36 [facility] Work Phone: Nitrite Test strip Ql (U)on 11-09-2021 Nitrite Ql (U) Positive Negative [facility] Work Phone: No Panel Informationon 11-09 Estimated Creatinine Clearance Calc 118.74 ml/min [facility] Work Phone: Estimated GFR (MDRD) Amer 151 mL/min >60 [facility] Work Phone: Comment on above: GFR Calc Estimated GFR (MDRD) Non-Af Amer 124 mL/min >60 [facility] Work Phone: Comment on above: Non- GFR Calc Platelets bldon 11-09-2021 Platelets (Bld) [#/Vol] 197 10*3/uL 150-450 [facility] Work Phone: ,Serum,hCG Quali.on 11-09-2021 HCG, SERUM QUAL Negative Normal [facility] Comment on above: Performed By: #### L 700.6800, L100.0100, L500.2500 #### [facility] [address] [place], [address] Protein Test strip Ql (U)on 11-09-2021 Protein Ql (U) Negative Negative [facility] Work Phone: Serum or plasma albumin baljit urement (mass/volume)on 11-09-2021 Albumin [Mass/Vol] 3.6 g/dL 3.2-5.0 [facility] Work Phone: Serum or plasma calcium baljit urement (mass/volume)on 11-09-2021 Calcium [Mass/Vol] 8.8 mg/dL 8.5-10.1 [facility] Work Phone: Serum or plasma creatinine m easurement (mass/volume)on 11-09-2021 Creatinine [Mass/Vol] 0.62 mg/dL 0.55-1.02 [facility] Work Phone: Comment on above: The validity of the calculated GFR & GFRAA in patients over 70 years has not been determined. Clinical correlation is essential. Serum or plasma urea nitroge n measurement (mass/volume)on 11-09-2021 Urea nitrogen [Mass/Vol] 7 mg/dL 7-18 [facility] Work Phone: Thin prep Papanicolaou smear with manual screeningon 11-09-2021 Thin prep Papanicolaou smear with manual screening 10 U/L 15-37 [facility] Work Phone: Thin prep Papanicolaou smear with manual screening 6 5-15 [facility] Work Phone: Urine blood detectionon 10-20 RBC Ql (U) Negative Negative [facility] Work Phone: Urine clarityon 11-09-2021 Clarity (U) Clear Clear [facility] Work Phone: Urine color determinationon 11-09-2021 Color (U) Yellow Yellow [facility] Work Phone: Urine glucose detectionon Glucose Ql (U) Normal mg/dl Normal [facility] Work Phone: Urine leukocyte esterase det ection by dipstickon 11-09-2021 Leukocyte esterase Test strip Ql (U) 25 /ul Negative [facility] Work Phone: Urine pHon 11-09-2021 pH (U) 6.5 [pH] 5.0 - 8.0 [facility] Work Phone: Urine specific gravity measu rementon 11-09-2021 Specific gravity (U) [Rel density] 1.010 1.002-1.030 [facility] Work Phone: Urobilinogen Auto test strip Ql (U)on 11-09-2021 Urobilinogen Ql (U) 4 mg/dl Normal [facility] Work Phone: Urgent Care Visit Reporton 1 07-12-2020 Urgent Care Visit Report [facility] [address] [place] [address] [address] [place] [address] OFFICE VISIT Date of Service: 05/11/21 MR#: [id number] Acct: [id number] Name: EZ FAULKNER Rep #: [id number] : 1995 Provider: VENTURA castillo Age/Sex: 25/F Location: [facility] Status: Signed with Addenda ADDENDUM by Oneyda Fu RN on 05/11/21 at 0805 Office Procedure Documentation entered by Oneyda Fu RN 05/11/21 08:05: Immunizations Adacel(Tdap Adolesn/Adult)(PF) Performing Provider: Obi WHITEHEAD PA Administered by: Oneyda Fu RN on 05/11/21 08:04 Dose Route Admin Location Lot Number Expiration Date NDC Manufactu rer 0.5 mL IM Left Deltoid [id number] 08/31/22 [id number] [employer] VIS Given Date VIS Provided VIS Publication Date 05/11/21 Single Vaccine 19 Eligibility Eligibility Date Funding Source None 05/11/21 0805 Date Oneyda Fu RN cc: * Signed ADDENDUM by VENTURA Gamez on 05/11/21 at 0756 HPI Details: VS: 98.4f, 132/84, p - 76, r - 14, ht 5'4, wt 196 lbs Assessment and Plan Assessment and Plan (1) Laceration of right index finger: Status: Acute Plan Details Other Medications: New: Adacel(Tdap Adolesn/Adult)(PF) (diph,pertuss(acel),t et vac(PF)) 0.5 mL IM ONCE 0.5 mL 0RF NS Z23 Other Orders: Orders: Tdap Immunization Today Z23 05/11/21 0756 Date Obi Gamez cc: * Signed Intake Intake Visit Reasons: CUT ON R POINTER FINGER Chief Complaint: RIF laceration Allergies amoxicillin [Amoxicillin] Allergy (Verified 07/11/17 11:16) Rash acetaminophen [From Vicodin] Adverse Reaction (Verified 07/11/17 11:16) Nausea/Vom/Diarrhea hydrocodone bitartrate [From Vicodin] Adverse Reaction (Verified 07/11/17 11:16) Nausea/Vom/Diarrhea PFS Medical History (Updated 05/11/21 @ 07:55 by Obi WHITEHEAD, PA) Laceration of right index finger Surgical History (Updated 07/11/17 @ 11:17 by Meg Enciso) H/O wisdom tooth extraction History of placement of ear tubes History of tonsillectomy Family History (Updated 07/11/17 @ 11:18 by Meg Enciso) Mother Lupus Diabetes Grandfather Diabetes Heart disease Social History (Updated 07/11/17 @ 11:32 by Naty Joe NP, [employer]ER-C) Smoking Status: Never smoker alcohol intake: current details: social substance use type: does not use caffeine: Yes frequency: 1-2 times per week seatbelt use: always do you feel safe at home: Yes additional social history: Single- Unemployed HPI HPI Chief Complaint: RIF laceration Details: EZ FAULKNER, is a 25 F who presents to the office today for initial evaluation of right index finger laceration occurring earlier this morning while at home cutting against a piece of broken glass in her kitchen. Unknown last Td. [id number]. No loss of sensation or strength or function at the injury site or distal to. Patient notes cleaning the site immediately with soap and water and realigning flap in appropriate anatomic position and applied Neosporin thereafter. No other complaints at this time. ROS Const Constitutional: No other (As above) Exam Const General: cooperative, healthy appearing, comfortable and no acute distress Nutritional Appearance: well nourished Orientation: alert, awake and oriented x3 Chest Chest palpation inspection: normal inspection of the chest Resp Effort Inspection: normal respiratory effort, able to speak in complete sentences and symmetric chest movement Cardio Rate: regular rate Pulses: radial pulses present Skin General: no rashes or lesions noted Trauma: laceration (3 cm c-shaped at RIF dorsal prox. phalanx) Other: Patient refusing suture placement, therefore site cleansed with Hibiclens and saline, bacitracin ointment, then benzoin with Steri-Strips x2 and aluminum finger splint placed for stabilization. Neuro General: patient alert, patient awake, patient oriented x3 and gait normal Cognition: normal cognition Speech: speech normal Gait: normal gait Motor: muscle tone normal throughout Sensory Exam: no sensory deficits noted Extrem General: normal to inspection Psych Appearance: grossly normal Mental Status: mental status grossly normal Mood: congruent mood Affect: normal affect Speech and Movement: speech and movement normal Attitude: cooperative Thought Process: normal Thought Content: normal Judgment: judgment good Coding Level of Care Code Off vis,new,level 3 Diagnoses Laceration of right index finger S61.210A Assessment and Plan Assessment and Plan (1) Laceration of right index finger: Status: Acute Plan: Tdap updated today. (more content not included)... Normal [facility] Vital Signs Date Time Vital Sign Value Performing Clinician Joey fermin 11-09-2021 21:06-0400 Diastolic blood pressure 98 mm[Hg] [facility] Work Phone: 11-09-2021 21:06-0400 Heart rate 57 /min [facility] Work Phone: 11-09-2021 21:06-0400 Respiratory rate 14 /min [facility] Work Phone: 11-09-2021 21:06-0400 SaO2% (BldA) [Mass fraction] 98 % [facility] Work Phone: 11-09-2021 21:06-0400 Systolic blood pressure 138 mm[Hg] [facility] Work Phone: 11-09-2021 20:30-0400 Body height 162.56 cm [facility] Work Phone: 11-09-2021 20:30-0400 Body mass index (BMI) [Ratio] 31.6 kg/m2 [facility] Work Phone: 11-09-2021 20:30-0400 Body temperature 97.6 [degF] [facility] Work Phone: 11-09-2021 20:30-0400 Body weight 83.46 kg [facility] Work Phone: Encounters Encounter Date Encounter Type Care Provider Facility Start: 11-15-2023 Telephone encounter Shy mcmahon TRIPLE VALVE TESTER.CNM Work Phone: OB/Gynecology Comment on above: Early OB Spotting Start: 11-09-2021 End: 11-09-2021 Emergency department patient visit [facility]Emergency Department Procedures Date Procedure Procedure Detail Performing Clinician Start: 11-09-2021 Computed tomography of abdomen and pelvis with intravenous contrast Plan of Treatment Date Care Activity Detail Author Start: 01-20-2024 Influenza vaccination Influenz a Vaccine (Season Ended) [facility] Start: 01-09-2024 End: 01-09-2024 Patient encounter procedure 01/09/2024 10:00 AM EDT Routine Office Visit OB/Gynecology [address] [place] [address] Kandis Lang MD [address] [place] [address] NEW OB- LMP 10/12/23 OB/Gynecology Comment on above: NEW OB- LMP 10/12/23 Start: 12-10-2023 End: 12-10-2023 Patient encounter procedure 12/10/2023 2:45 PM EDT Initial Office Visit OB/Gynecology [address] [place] [address] Radha Denny APRN.BOTANY TEACHER [address] [place] [address] NEW OB- LMP 10/12/23 OB/Gynecology Comment on above: NEW OB- LMP 10/12/23 Start: 05-21-2023 Behavioral Health Screening Behavioral Health Screening [facility] Start: 01-19-2023 Covid-19 Vaccine ( season) Covid-19 Vaccine ( season) [facility] Start: 10-05-2020 Urine microalbumin profile DTaP,Tdap,Td Vaccine (6 - Td or Tdap) [facility] Start: 08-28-2016 Screening for malign ant neoplasm of cervix Cervical Cancer Screening [facility] Start: 08-28-2013 Hepatitis C screening Hepatitis C Sc reening [facility] Start: 08-28-2013 HIV screening HIV Screening [facility] Microscopic urinalysis [facility] Work Phone: Organism count, microscopic method [facility] Work Phone: Patient Education ED Abdominal P ain Unkn Cause Fem [facility] Work Phone: Patient referral [facility] Work Phone: Urinalysis, blood, qualitative [facility] Work Phone: Urine microscopy: epithelial cells [facility] Work Phone: White blood cell count [facility] Work Phone: Immunizations Immunization Date Immunization Notes Care Provider Claire sánchez 05-11-2021 tetanus toxoid, redu sarah diphtheria toxoid, and acellular pertussis vaccine, adsorbed [facility] Work Phone: 04-29-2012 influenza virus vaccine, unspecified formulation Shy Aguilar TRIPLE VALVE TESTER.CNM Work Phone: [facility] Payers Date Payer Category Payer Private Health Insurance [employer] [id number] 2023-Present [phone] [id number] [place] [id number] Open Access [id number] Self-pay [facility] [id number] Unknown [facility] [id number] Unknown [facility] [id number] Social History Date Type Detail Facility [facility] Work Phone: Start: 11-09-2021 [facility] if ever smoked [facility] Work Phone: Start: 1995 Sex Assigned At Female W [facility] Work Phone: Start: 04-29-2013 Tobacco smoking stat [facility] Never smoked tobacco [facility] Start: 04-29-2013 Tobacco use and exposure Smokeless tobacco non-user [facility] Start: 07-05-2017 Alcohol intake Current drinke r of alcohol (finding) [facility] Start: 04-08-2020 End: 04-25-2020 History of Social function [facility] Start: 04-08-2020 End: 04-25-2020 Tobacco use panel [facility] National Score (1-100), lower number is lower risk Not on file [facility] Start: 1995 Sex Assigned At Not on file [facility] Telephone encounter Note 11-15-2023 Telephone Encounter - Shy Aguilar APRN.CNM - 11/15/2023 3:18 PM EDT Note Date & Type Note Facility 11-15-2023 Telephone encounter Note Agree with plan of care. Shy Aguilar APRN.CNM [facility] Work Phone: Note 11-15-2023 Telephone Encounter - Shy Aguilar APRN.CNM - 11/15/2023 3:18 PM EDTTelephone Encounter - Kandis Marshall RN - 11/15/2023 2:58 PM EDT Note Date & Type Note Facility 11-15-2023 Miscellaneous Notes Formattin g of this note might be different from the original. Agree with plan of care. Shy Aguilar APRN.CNM LMP 10/11 Approximately 4w6d Patient calling with c/o light pink spotting on Sunday night and again just a few moments ago. Only when she wiped. Mild to no pain. Reassurance provided. Patient had intercourse on Sunday. Advised to call with further or increased bleeding or worsening pain. Patient has upcoming NOB. No need to call patient unless provider has further recommendations. Kandis Marshall RN documented in this encounter [facility] Telephone encounter Note 11-15-2023 Telephone Encounter - Kandis Marshall RN - 11/15/2023 2:58 PM EDT Note Date & Type Note Facility 11-15-2023 Telephone encount er Note LMP 10/11 Approximately 4w6d Patient calling with c/o light pink spotting on Sunday night and again just a few moments ago. Only when she wiped. Mild to no pain. Reassurance provided. Patient had intercourse on Sunday. Advised to call with further or increased bleeding or worsening pain. Patient has upcoming NOB. No need to call patient unless provider has further recommendations. Kandis Marshall RN [facility] Evaluation note Note Date & Type Note Facility Evaluation note No assessment information availa ble [facility] Work Phone: Hospital Discharge instructions Note Date & Type Note Facility Hospital Discharge instructions Additional Instructions If continued symptoms or worsening symptoms in 24-48 hrs. please return for repeat examination [facility] Work Phone: Chief Complaint and Reason for Visit Chief Complaint ABD PAIN Family History No Family History Records Found Relationship Condition Age at Onset Recorded Date/T corwin mother Lupus erythematosus Unknown Diabetes mellitus Unknown grandfather Diabetes mellitus Unknown Cardiac disease Unknown Advance Directives No Advanced Directives Records Found Advance Directive Response Recorded Date/ Time Living Will No November 09, 2021 9:03pm Power of Payroll Accounting Clerk No November 09 9:03pm Summary Purpose Additional Source Comments Goals (unrecognized section and content) Goals may be documented in a n alternate section INFORMATION SOURCE (unrecogn ized section and content) DATE CREATED AUTHOR 11/24/2021 [facility] DATE CREATED AUTHOR AUTHOR'S CHINA RIVERA 11/17/2023 [facility] Source Comments (unrecognize d section and content) In the event this informatio n is protected by the Federal Confidentiality of Alcohol and Drug Abuse Patient Records regulations: The Federal rules restrict any use of the information to criminally investigate or prosecute any alcohol or drug abuse patient.[facility] Reason for Visit (unrecogniz ed section and content) Reason Comments Early OB Spotting FOR RECORDS PERTAINING TO PATIENTS WHO ARE OR HAVE BEEN ENROLLED IN A CHEMICAL DEPENDENCY/SUBSTANCEABUSE PROGRAM, SOME INFORMATION MAY BE OMITTED. This clinical summary was aggregated from multiple sources. Caution should be exercised in using it in the provision of clinical care. This summary normalizes information from multiple sources, and as a consequence, information in this document may materially change the coding, format and clinical context of patient data. In addition, data may be omitted in some cases. CLINICAL DECISIONS SHOULD BE BASED ON THE PRIMARY CLINICAL RECORDS. [employer] [facility]. provides no warranty or guarantee of the accuracy or completeness of information in this document.
== END 2025-02-01 19:17 | disposition home or self-care (01) ==
PROVIDERS: Emergency Provider Emergency Medicine; Visit Provider Emergency Medicine
DX: S09.90XA Unspecified injury of head, initial encounter (principal); S16.1XXA Strain of muscle, fascia and tendon at neck level, initial encounter; V89.2XXA Person injured in unspecified motor-vehicle accident, traffic, initial encounter
CPT/HCPCS: 99282